=== PATIENT | female | born 1950 | race Caucasian/White ===

== ENCOUNTER 2024-09-15 17:16 | Emergency (ER) | payer MEDICARE, OTHER ==
[~2024-09-15] VITALS: Ht 154.9 cm; Wt 72.7 kg
[2024-09-15 17:30] VITALS: PULSE 105; RESP 18; O2SAT 93
--- NOTE | 2024-09-15 17:37 | ED.PDOC ---
History of Present Illness HPI Comments 74F BIBA w/ no prior Hx associated to the c/c of a fall. Pt reports on only getting 3hrs of sleep last night and was very tired. Pt states that she has someone fixing her bathroom when she tripped over a tool box landing hitting her left hip, left elbow, and left lateral parietal region of the skull. Pt states a pain type of the hip to be a 3/10. Pt notes that EMS did give her Tylenol for the pain and is working. PMHx of Stage 4 Cancer, and Pre-DM. SHx of Cholecystectomy and Cataract Sx. Family Hx of Cancer. Denies chills, fever, N/V/D, SOB, CP or other associated symptom's, modifiers, or recent injuries or sick contact at this time. Time Seen by MD: 17:15 Reviewed Notes: Nurses Notes, Steel Melter Notes, Medications, Allergies Information Source: Patient, Emergency Med Personnel Mode of Arrival: EMS Severity: Moderate Timing: Minutes Duration: Since onset, Minutes Prehospital treatment: Pain Meds Past Medical History PAST MEDICAL HISTORY: Cancer (Stage 4), DM (Pre-DM) Surgical History: Cholecystectomy Surgical History (Other): Cataract Sx Family History Family History: Reviewed,noncontributory to illness, Family hx of Cancer Social History Smoker: Non-Smoker Alcohol: Denies ETOH Use Drugs: Denies Drug Use Lives In: Home Constitutional: reports: others (Fall Trauma); denies: chills, diaphoresis, fatigue, fever, malaise, sweats, weakness EENTM: denies: blurred vision, double vision, ear bleeding, ear discharge, ear drainage, ear pain, ear ringing, eye pain, eye redness, hearing loss, mouth pain, mouth swelling, nasal discharge, nose bleeding, nose congestion, nose pain, photophobia, tearing, throat pain, throat swelling, voice changes, others Respiratory: denies: cough, hemoptysis, orthopnea, SOB at rest, shortness of breath, SOB with excertion, stridor, wheezing, others Cardiovascular: denies: chest pain, dizzy spells, diaphoresis, Dyspnea on exertion, edema, irregular heart beat, left arm pain, lightheadedness, palpitations, PND, syncope, others Gastrointestinal: denies: abdomen distended, abdominal pain, blood streaked bowels, constipated, diarrhea, dysphagia, difficulty swallowing, hematemesis, melena, nausea, poor appetite, poor fluid intake, rectal bleeding, rectal pain, vomiting, others Genitourinary: denies: abnormal vagina bleeding, burning, dyspareunia, dysuria, flank pain, frequency, hematuria, incontinence, pain, , vagina discharge, urgency, others Neurological: denies: dizziness, fainting, headache, left sided numbness, left sided weakness, numbness, paresthesia, pre-existing deficit, right sided n umbness, right sided weakness, seizure, speech problems, tingling, tremors, weakness, others Musculoskeletal: denies: back pain, gout, joint pain, joint swelling, muscle pain, muscle stiffness, neck pain, others Integumetry: denies: bruises, change in color, change in hair/nails, dryness, laceration, lesions, lumps, rash, wounds, others Allergic/Immunocompromised: denies: Difficulty Healing, Frequent Infections, Hives, Itching, others Hematologic/Lymphatic: denies: anemia, blood clots, easy bleeding, easy bruising, swollen glands, others Endocrine: denies: excessive hunger, excessive sweating, excessive thirst, excessive urination, flushing, intolerance to cold, intolerance to heat, unexplained weight gain, unexplained weight loss, others Psychiatric: denies: anxiety, bipolar disorder, depression, hopeless, panic disorder, schizophrenia, sleepless, suicidal, others All Other Systems: Reviewed and Negative Physical Exam General Appearance: Mild Distress HEENT: Normal ENT Inspection, Pharynx Normal, TMs Normal Neck: Full Range of Motion, Non-Tender, Normal, Normal Inspection Respiratory: Chest Non-Tender, Lungs Clear, No Accessory Muscle Use, No Respiratory Distress, Normal Breath Sounds Cardiovascular: No Edema, No JVD, No Murmur, No Gallop, Normal Peripheral Pulses, Regular Rate/Rhythm Breast Exam: Deferred Gastrointestinal: No Organomegaly, Non Tender, No Pulsatile Mass, Normal Bowel Sounds, Soft Genitalia: Deferred Pelvic: Deferred Rectal: Deferred Extremities: No calf tenderness, Normal capillary refill, No pedal edema Musculoskeletal : Location: Left Extremity Location: Elbow, Hip Apperance: Tenderness: Mild Neurologic: Alert, respiratory practitioner II-XII nml as Tested, No Motor Deficits, Normal Affect, Normal Mood, No Sensory Deficits Cerebellar Function: Normal Reflexes: Normal Skin: Dry, Normal Color, Warm Lymphatic: No Adenopathy Was a procedure done? Was a procedure done?: No Differential Dx Considerations may include: Fracture, strain, dislocation X-Ray, Labs, Meds, VS Vital Signs Date Time Temp Pulse Resp B/P (MAP) Pulse Ox O2 Delivery O2 Flow Rate FiO2 09/15/24 17:38 98.9 89 16 150/70 (96) 100 09/15/24 17:30 98.6 105 18 169/87 (114) 93 98.6 09/15/24 17:30 105 18 93 Room Air* 0 21 Lab Test 09/15/24 18:23 Range/Units White Blood Count 7.7 4.4-10.8 10^3/uL Red Blood Count 3.79 L 4.0-5.20 10^6/uL Hemoglobin 12.0 L 12.2-16.2 g/dL Hematocrit 34.4 L 36.0-46.0 % Mean Corpuscular Volume 90.6 80.0-100.0 fL Mean Corpuscular Hemoglobin 31.7 28.0-32.0 pg Mean Corpuscular Hemoglobin Concent 35.0 32.0-36.0 g/dL Red Cell Distribution Width 13.3 11.8-14.3 % Platelet Count 137 L 140-450 10^3/uL Mean Platelet Volume 7.3 6.9-10.8 fL Neutrophils (%) (Auto) 75.3 37.0-80.0 % Lymphocytes (%) (Auto) 10.3 10.0-50.0 % Monocytes (%) (Auto) 12.9 H 0.0-12.0 % Eosinophils (%) (Auto) 0.9 0.0-7.0 % Basophils (%) (Auto) 0.6 0.0-2.0 % Neutrophils # (Auto) 5.8 1.6-8.6 10 ^3/uL Lymphocytes # (Auto) 0.8 0.4-5.4 10 ^3/uL Monocytes # (Auto) 1.0 0-1.3 10 ^3/uL Eosinophils # (Auto) 0.1 0-0.8 10 ^3/uL Basophils # (Auto) 0 0-0.2 10 ^3/uL Nucleated Red Blood Cells 0.1 % Sodium Level 143 136-145 mmol/L Potassium Level 4.0 3.5-5.1 mmol/L Chloride Level 106 98-107 mmol/L Carbon Dioxide Level 26 20-31 mmol/L Anion Gap 11 5-15 Blood Urea Nitrogen 27 H 9-23 mg/dL Creatinine 1.06 H 0.550-1.02 mg/dL Glomerular Filtration Rate Calc 55 >90 mL/min BUN/Creatinine Ratio 25.5 H 10.0-20.0 Serum Glucose 136 H 74-106 mg/dL Calcium Level 10.7 H 8.7-10.4 mg/dL The patient's CBC shows anemia with a hemoglobin of 12 and hematocrit of 34.4 The chemistry panel shows a BUN of 27 and a creatinine of 1.06 The patient's glucose is 136 At this time, the patient will be discharged The CT scan of the head is negative The x-ray of the left elbow is negative The x-ray of the left hip is negative The patient was discharged Images Reviewed?: Images reviewed and evaluated by me Time of 1ST Reevaluation: 17:45 Reevaluation 1ST: Unchanged Patient Education/Counseling: Diagnosis, Treatment, Prognosis, Need For Follow Up Family Education/Counseling: No Family Present Departure 1 Departure Time of Disposition: 19:25 Impression: Primary Impression: Contusion of left hip Qualified Codes: S70.02XA - Contusion of left hip, initial encounter Additional Impressions: Left elbow contusion Qualified Codes: S50.02XA - Contusion of left elbow, initial encounter Blunt head trauma Qualified Codes: S09.8XXA - Other specified injuries of head, initial enc ounter History of fall Disposition: 01 HOME / SELF CARE / HOMELESS Condition: Fair Discharged With: Self Critical Care Note Critical Care Time?: No Stability Stability form required: No Heart Score Heart Score: Heart Score Response (Comments) Value History N/A 0 EKG N/A 0 Age N/A 0 Risk Factors N/A 0 Troponin N/A 0 Total 0 I personally scribed for MICHELE BUSTILLO MD ([email or web address]) on 09/15/24 at 17:37. Electronically submitted by Josh Angel ([email or web address]). MICHELE BUSTILLO MD Sep 15, 2024 17:37
[2024-09-15 18:32] LABS: Basophils # (auto) 0 10 ^3/uL (0-0.2); Basophils % (auto) 0.6 % (0.0-2.0); Eosinophils # (auto) 0.1 10 ^3/uL (0-0.8); Eosinophils % (auto) 0.9 % (0.0-7.0); Hematocrit 34.4 % (36.0-46.0); Lymphocytes # (auto) 0.8 10 ^3/uL (0.4-5.4); Lymphocytes % (auto) 10.3 % (10.0-50.0); Mean Corpuscular Hemoglobin 31.7 pg (28.0-32.0); Mean Corpuscular Volume 90.6 fL (80.0-100.0); Monocytes % (auto) 12.9 % (0.0-12.0); Neutrophils # (auto) 5.8 10 ^3/uL (1.6-8.6); Neutrophils % (auto) 75.3 % (37.0-80.0); Nucleated Red Blood Cells % 0.1 %; Platelet Count (auto) 137 10^3/uL (140-450); Red Blood Cells 3.79 10^6/uL (4.0-5.20); Red Cell Distribution Width 13.3 % (11.8-14.3); White Blood Cell 7.7 10^3/uL (4.4-10.8)
[2024-09-15 18:48] LABS: Chloride 106 mmol/L (98-107); Sodium 143 mmol/L (136-145)
[2024-09-15 18:49] LABS: Anion Gap 11 (5-15); Carbon Dioxide 26 mmol/L (20-31)
[2024-09-15 18:54] LABS: BUN/Creatinine Ratio 25.5 (10.0-20.0)
[2024-09-15 19:06] LABS: Blood Urea Nitrogen 27 mg/dL (9-23); Calcium 10.7 mg/dL (8.7-10.4); Glucose 136 mg/dL (74-106)
[2024-09-15 19:10] VITALS: PULSE 79; RESP 18; O2SAT 98
--- NOTE | 2024-09-15 19:14 | DVH ---
EXAM: CT HEAD WITHOUT CONTRAST INDICATION: fall TECHNIQUE: CT of the head without intravenous contrast. Radiation Dose Information: CT Dose: CTDI volume is 53.94 mGy. Dose-length product is 955.15 mGy*cm The dose indicators for CT are the volume Computed Tomography (CT) Dose Index (CTDIvol) and the Dose Length Product (DLP), and are measured in units of mGy and mGy-cm, respectively. These indicators are not patient dose, but values generated from the CT scanner acquisition factors. The report includes radiation exposure data for exposures received during this examination. COMPARISON: None FINDINGS: There is no evidence of acute intracranial hemorrhage, extra-axial collection, mass effect, midline s hift, herniation or hydrocephalus. The ventricles, sulci and cisterns are age appropriate. The louise-white differentiation is intact. Patchy periventricular and subcortical white matter hypoattenuation is nonspecific but may be related to small vessel ischemic disease. The visualized paranasal sinuses and mastoid air cells are clear. The surrounding soft tissues and osseous structures are unremarkable. IMPRESSION: 1. No acute intracranial hemorrhage 2. No CT findings of displaced skull fracture. 3. No CT findings of territorial ischemia. HS:Y
--- NOTE | 2024-09-15 19:14 | DVH ---
CLINICAL INFORMATION: 74 years old, Female; fall. TECHNIQUE: 3 views of the left were obtained. COMPARISON: None FINDINGS: No acute fracture or dislocation. No significant arthropathy. No significant joint effusi on. Overlying soft tissues are unremarkable. Bones are osteopenic and there is loss of muscle mass. No signs of elevated fat pads IMPRESSION: 1. No acute bony abnormality.
--- NOTE | 2024-09-15 19:16 | DVH ---
EXAM: XY L HIP COMPLETE XRAY CLINICAL HISTORY: fall COMPARISON: None TECHNIQUE: XY L HIP COMPLETE XRAY Findings/Impression: 2 views of the left hip with frontal view of the pelvis. There is no evidence of an acute fracture, dislocation, blastic, or lytic lesions. No radiopaque foreign bodies. No joint effusion or superficial soft tissue abnormalities.
[2024-09-15] MEDS: ONDANSETRON ODT 4 MG TAB PO ONE (21:52)
[2024-09-15] MEDS: HYDROmorphone HCL 2 MG/ML VL/or syr IM ONE (22:10)
[2024-09-15 22:17] VITALS: BP 150/68; PULSE 84; RESP 17; TEMP 98
== END 2024-09-16 00:08 | disposition home or self-care (01) ==
LOC: ER 17:16 → EDBD 17:16 → ER 09-16 00:08
DX: S70.02XA Contusion of left hip, initial encounter (principal); S50.02XA Contusion of left elbow, initial encounter; S09.90XA Unspecified injury of head, initial encounter; Z90.49 Acquired absence of other specified parts of digestive tract; W01.0XXA Fall on same level from slipping, tripping and stumbling without subsequent striking against object, initial encounter; Y93.89 Activity, other specified; Y92.89 Other specified places as the place of occurrence of the external cause; Y99.8 Other external cause status
CPT/HCPCS: 36415; 70450; 73070; 73502; 80048; 85025; 96372; 99285; J1171; Q0162